=== PATIENT | female | born 1980 | race Caucasian/White ===

== ENCOUNTER 2021-02-06 19:09 | Emergency (ER) | payer OTHER ==
[2021-02-06 19:32] VITALS: BP 98/54; TEMP 98.6; BMI 25.2
[2021-02-06] MEDS ORDERED: KETOROLAC TROMETHAMINE 30 MG/1 ML VIAL IVPUSH ONE (20:10)
[2021-02-06] MEDS ORDERED: ONDANSETRON 4 MG/2 ML VIAL IVPUSH ONE (20:10)
[2021-02-06] MEDS ORDERED: MAG HYDROX/AL HYDROX/SIMETH 30 ML UNIT-DOSE CUP PO ONE (20:10)
[2021-02-06] MEDS ORDERED: PANTOPRAZOLE SODIUM 40 MG VIAL IVPUSH ONE (20:10)
[2021-02-06] MEDS ORDERED: MAG HYDROX/AL HYDROX/SIMETH 30 ML UNIT-DOSE CUP ONE (20:14)
[2021-02-06] MEDS ORDERED: PANTOPRAZOLE SODIUM 40 MG/100 ML BAG IVPB ONE (20:14)
[2021-02-06] MEDS ORDERED: KETOROLAC TROMETHAMINE 30 MG/1 ML VIAL ONE (20:15)
[2021-02-06] MEDS ORDERED: ONDANSETRON 4 MG/2 ML VIAL ONE (20:15)
[2021-02-06 20:41] LABS: BASO % 0.7 % (0-2.0); EOS % 0.6 % (0-4.5); EPI CELLS 32 /uL (0-25.1); HEMATOCRIT 40.1 % (32.4-45.2); HEMOGLOBIN 13.7 GM/dL (10.7-15.3); HYALINE CASTS 1 /uL (0-3.1); LYMPH % 30.6 % (8-40); MCH 30.7 pg (25.7-33.7); MEAN CELL VOLUME 90.1 fl (80-96); MEAN PLT VOLUME 8.2 fl (7.5-11.1); MONO % 6.8 % (3.8-10.2); NEUT % 61.3 % (42.8-82.8); PLATELET COUNT 528 K/MM3 (134-434); RBC 4.45 M/mm3 (3.60-5.2); RDW 14.3 % (11.6-15.6); URINE APPEARANCE CLEAR; URINE BACTERIA 1005 /uL (0-1359); URINE BILIRUBIN NEGATIVE (NEGATIVE); URINE COLOR YELLOW; URINE GLUCOSE (UA) NEGATIVE (NEGATIVE); URINE KETONE TRACE (NEGATIVE); URINE LEUK ESTERASE 1+ (NEGATIVE); URINE NITRITE NEGATIVE (NEGATIVE); URINE PROTEIN NEGATIVE (NEGATIVE); URINE RBC 9 /uL (0-23.9); URINE UROBILINOGEN 0.2 mg/dL (0.2-1.0); URINE WBC 28 /uL (0-25.8); WHITE BLOOD COUNT 13.6 K/mm3 (4.0-10.0)
[2021-02-06 21:03] LABS: CALCIUM 9.7 mg/dL (8.5-10.1)
[2021-02-06 21:04] LABS: ALBUMIN 4.4 g/dl (3.4-5.0)
[2021-02-06 21:06] LABS: CREATININE 0.8 mg/dL (0.55-1.3)
[2021-02-06 21:08] LABS: BILIRUBIN,TOTAL 0.4 mg/dL (0.2-1); TOT PROT 8.4 g/dl (6.4-8.2)
[2021-02-07 00:57] VITALS: PULSE 89
== END 2021-02-07 00:58 | disposition home or self-care (01) ==
LOC: JER 19:09
PROC: 3E0333Z Introduction of Anti-inflammatory into Peripheral Vein, Percutaneous Approach (ICD-10-PCS; principal; 2021-02-06)
PROC: 3E033GC Introduction of Other Therapeutic Substance into Peripheral Vein, Percutaneous Approach (ICD-10-PCS; 2021-02-06)
PROC: 3E033GC Introduction of Other Therapeutic Substance into Peripheral Vein, Percutaneous Approach (ICD-10-PCS; 2021-02-06)
DX: R10.33 Periumbilical pain (principal)
CPT/HCPCS: 36415; 74177-TC; 76705-TC; 80053; 81003; 83690; 84702; 85025; 87086; 96374; 96375; 99285-25; C9803; U0003; U0005